=== PATIENT | female | born 1960 ===

== ENCOUNTER 2021-04-06 07:15 | Inpatient (IN) | payer OTHER ==
[2021-04-06] MEDS ORDERED: SYNTHROID50 MCG (09:06)
[2021-04-06] MEDS ORDERED: CATAFLAN (09:06)
[2021-04-06] MEDS ORDERED: NEURONTIN (09:06)
[2021-04-13] MEDS ORDERED: ESCITALOPRAM OX10 MG (15:01)
[2021-04-13] MEDS ORDERED: ATORVASTATIN CA20 MG (15:02)
[2021-04-13] MEDS ORDERED: BUSPIRONE HCL5 MG (15:02)
[2021-04-13] MEDS ORDERED: BACLOFEN10 MG (15:02)
[2021-04-13] MEDS ORDERED: GABAPENTIN100 M2 (15:02)
[2021-04-13] MEDS ORDERED: ZOLPIDEM TARTRA10 MG (15:02)
[2021-04-13] MEDS ORDERED: DICLOFENAC POTA50 MG (15:02)
[2021-04-13] MEDS ORDERED: MIRTAZAPINE15 MG (15:02)
[2021-04-13] MEDS ORDERED: IBANDRONATE SO150 MG (15:02)
[2021-04-13] MEDS ORDERED: HYDROCORTISONE30 G4 (15:03)
[2021-04-13] MEDS ORDERED: LANSOPRAZOLE30 MG (15:03)
[2021-04-13] MEDS ORDERED: OXYBUTYNIN CHLO10 MG (15:03)
[2021-04-13] MEDS ORDERED: OMEPRAZOLE20 MG (15:03)
[2021-04-13] MEDS ORDERED: CLOTRIMAZOLE-BE15 GM (15:03)
== END 2021-04-15 14:39 | DRG 470 ==
LOC: O/R 04-12 05:25 → SURH 04-12 07:15
PROVIDERS: ADMIT Orthopaedic Surgery; ATTEND Orthopaedic Surgery
PROC: 0SRD0J9 Replacement of Left Knee Joint with Synthetic Substitute, Cemented, Open Approach (ICD-10-PCS; principal; 2021-04-12 10:00)
DX: M17.12 Unilateral primary osteoarthritis, left knee (principal); D62 Acute posthemorrhagic anemia; M85.862 Other specified disorders of bone density and structure, left lower leg; M85.662 Other cyst of bone, left lower leg; M16.12 Unilateral primary osteoarthritis, left hip; D50.8 Other iron deficiency anemias; E03.8 Other specified hypothyroidism; Z20.822 Contact with and (suspected) exposure to COVID-19